=== PATIENT | female | born 1985 | race Caucasian/White ===

== ENCOUNTER 2018-09-15 12:46 | Emergency (ER) | payer BC, SELFPAY ==
[2018-09-15 12:47] VITALS: BP 120/76; PULSE 87; RESP 16; TEMP 36.9; O2SAT 96; BMI 30.7
--- NOTE | 2018-09-15 13:08 | CT_ITS ---
STUDY: CT ABDOMEN AND PELVIS WITHOUT CONTRAST REASON FOR EXAM: Female, 33 years old. Left flank pain. Nausea and vomiting. RADIATION DOSAGE (If Supplied By Facility): CTDIvol = ( 10.11 ) mGy, DLP = ( 459.86 ) mGycm TECHNIQUE: Transaxial images were obtained from the dome of the diaphragm to the symphysis pubis without oral contrast, and without intravenous contrast. Sagittal and coronal images were reconstructed. Individualized dose optimization techniques were used for this CT. COMPARISON: Comparison is made with prior study dated August 09, 2013. FINDINGS: The visualized lung bases are unremarkable. The visualized portions of the heart are within normal limits. Normal liver. Normal gallbladder and extrahepatic biliary system. Normal spleen. Normal pancreas. Normal bilateral adrenal glands. Normal right kidney. Normal left kidney. There is a small hiatal hernia. Normal small intestine. Normal colon. The appendix is visualized and appears normal. Normal abdominal aorta. Normal inferior vena cava. Normal retroperitoneum. Normal urinary bladder. Evidence of prior bilateral tubal ligation. Normal abdominal wall. Normal osseous structures. CT/Abdomen/Pelvis without Cont IMPRESSION: Normal unenhanced CT of the abdomen and pelvis. Electronically Signed: Negro Monaco, at 14:23 EDT , Service support ,
[2018-09-15 13:24] LABS: Mucous, Urine 0 SEEN /hpf (<or=2+)
[2018-09-15 13:26] LABS: White Blood Count 6.4 K/mm3 (4.4-11.0)
[2018-09-15 13:27] LABS: Absolute Lymphocyte Count 1.78 X10^3/ul (0.83-4.51); Absolute Neutrophil Count 4.1 X10^3/uL (2.0-7.7); Basophil% 0.3 % (0-1); Eosinophil# 0.03 X10^3/uL; Eosinophils% 0.5 % (0-5); Hemoglobin 13.4 g/dl (12.0-15.0); Lymphocyte # 1.78 X10^3/ul (4.0); Mean Corp Hgb Conc 32.7 g/gl (32-36); Mean Corpuscular Hgb 30.8 pg (27.0-32.0); Mean Corpuscular Volume 94.3 fL (81-99); Mean Platelet Vol. 9.5 fl (6.2-12.0); Monocyte# 0.44 X10^3/uL; Monocyte% 0.9 % (0-10); Neutrophil # 4.08 X10^3/uL (2.7-7.7); Neutrophil % 54.1 % (47-70); POSITIVE COUNT NO; POSITIVE DIFFERENTIAL NO; POSITIVE MORPHOLOGY NO; Platelet Count 337 K/mm3 (150-450); RBC Distribution Width CV 12.5 % (11.6-14.6); Red Blood Count 4.35 M/mm3 (4.2-5.4)
[2018-09-15 13:28] LABS: Basophil# 0.02 X10^3/uL
[2018-09-15 13:30] LABS: Color, Urine Yellow (Yellow); Glucose, Dipstick Normal (Normal); Ketone-Dipstick Negative (Negative); Leukocyte Esterase-Dipstick 25 /ul (Negative); Nitrite-Dipstick Negative (Negative); Occult Blood-Urine 10 /ul (Negative); Protein-Dipstick Negative (Negative); Specific Gravity, Urine 1.005 (1.002-1.030); Urine Bilirubin Dipstick Negative (Negative); Urine Clarity Clear (Clear); Urine Urobilinogen Normal (Normal); Urine pH 6.5 (5.0 - 8.0)
[2018-09-15 13:40] LABS: Bacteria RARE /hpf (None Seen); Red Blood Cells-Urine 0-5 SEEN /hpf (0-5); Squamous Epithelial Cells - UA 0-5 SEEN /hpf (5-10); White Blood Cells 0-5 SEEN /hpf (0-5)
[2018-09-15 13:46] LABS: Internal QC Validated? YES +Cl - CLEAR BKGD; Pregnancy, Serum, hCG Quali. NEGATIVE Negative
[2018-09-15 13:50] LABS: Anion Gap 8 (5-15); BUN 8 mg/dL (7-18); BUN/Creat Ratio 9.8 RATIO (10-20); Calcium,Total 8.6 mg/dL (8.5-10.1); Chloride 105 mmol/L (98-107); Creatinine, Serum 0.82 mg/dL (0.55-1.02); EST Glomerular Filtration Rate 85 mL/min (>60); Est Glom Filt Rate - Afr Amer 102 mL/min (>60); Estimated Creatinine Clearance 86.17 ml/min; Glucose 85 mg/dL (74-106); Potassium 3.6 mmol/L (3.5-5.1); Sodium Level 138 mmol/L (136-145)
--- NOTE | 2018-09-15 15:22 | ED.VISSUMM ---
- ER Visit Summary Date of Service: 09/15/18 Chief Complaint: [Abdominal pain as well as vomiting and diarrhea] History of Present Illness: The patient is a 33 F [the emergency department 5-day history of abdominal discomfort as well as vomiting and diarrhea. Patient states that she is been vomiting for the last 5 days however she only threw up once today. Patient had 2 watery stools today but is had been having copious watery stools. She denies any fever. She denies any sick contacts. She denies recent travel or antibiotic usage. Patient describes lower abdominal discomfort and discomfort into her back. Patient denies urinary symptoms. Patient states the discomfort is more in her left lower back and feels like cramping.] Physical Examination: [HEENT-PERRLA, EOMI. Cranial nerves II through XII grossly intact. TMs clear. Mucous membranes moist. No adenopathy. Cardiovascular-regular rate and rhythm without murmur or ectopy Lungs-clear to auscultation, chest wall stable without crepitus or subcu emphysema Abdomen-normoactive bowel sounds, soft. Patient has some mild diffuse tenderness over the lower abdomen. There is no rebound, rigidity, or perineal signs. Patient has some mild CVA tenderness on the left. Extremities-intact ?4, normal range of motion, normal pulses, atraumatic] Test Results: [CBC with differential was normal. Chemistries were normal. Urinalysis normal. hCG was negative. CT flank was normal.] Emergency Department Course and Treatment: [Patient was given normal saline. Patient was given Zofran 4 mg IV.] Treatment Plan: [Prescription for Zofran and Bentyl. Patient advised to follow-up with primary care physician 3 to 5 days.] Disposition: [Discharged home stable condition. Patient advised to return if worsening pain, fever, persistent vomiting, dehydration, or conditions worsen anyway.] Impression: [Viral gastroenteritis] This note was generated with [employer] dictation software. It may contain incorrect words, spelling, and punctuation that were not noted in review of the chart prior to signing ED Disposition - Plan for ED Patient: Referrals: Care Physician,No Primary [Primary Care Provider] -
--- NOTE | 2018-09-15 15:27 | ED.DCSUM_ITS ---
- ER Visit Summary Date of Service: 09/15/18 Chief Complaint: [Abdominal pain as well as vomiting and diarrhea] History of Present Illness: The patient is a 33 F [the emergency department 5- day history of abdominal discomfort as well as vomiting and diarrhea. Patient states that she is been vomiting for the last 5 days however she only threw up once today. Patient had 2 watery stools today but is had been having copious watery stools. She denies any fever. She denies any sick contacts. She denies recent travel or antibiotic usage. Patient describes lower abdominal discomfort and discomfort into her back. Patient denies urinary symptoms. Patient states the discomfort is more in her left lower back and feels like cramping.] Physical Examination: [HEENT-PERRLA, EOMI. Cranial nerves II through XII grossly intact. TMs clear. Mucous membranes moist. No adenopathy. Cardiovascular-regular rate and rhythm without murmur or ectopy Lungs-clear to auscultation, chest wall stable without crepitus or subcu emphysema Abdomen-normoactive bowel sounds, soft. Patient has some mild diffuse tenderness over the lower abdomen. There is no rebound, rigidity, or perineal signs. Patient has some mild CVA tenderness on the left. Extremities-intact ?4, normal range of motion, normal pulses, atraumatic] Test Results: [CBC with differential was normal. Chemistries were normal. Urinalysis normal. hCG was negative. CT flank was normal.] Emergency Department Course and Treatment: [Patient was given normal saline. Patient was given Zofran 4 mg IV.] Treatment Plan: [Prescription for Zofran and Bentyl. Patient advised to follow- up with primary care physician 3 to 5 days.] Disposition: [Discharged home stable condition. Patient advised to return if worsening pain, fever, persistent vomiting, dehydration, or conditions worsen anyway.] Impression: [Viral gastroenteritis] This note was generated with [employer] dictation software. It may contain incorrect words, spelling, and punctuation that were not noted in review of the chart prior to signing ED Disposition - Plan for ED Patient: Referrals: Care Physician,No Primary [Primary Care Provider] -
--- NOTE | 2018-09-15 15:27 | ED.DEP ---
ED Disposition - Plan for ED Patient: Instructions: ED Gastroenteritis Viral Prescriptions: Ondansetron [Zofran Odt] 4 mg PO Q8H PRN PRN #10 tab PRN Reason: Nausea Dicyclomine HCl [Bentyl] 20 mg PO TIDAC #20 cap Referrals: Care Physician,No Primary [Primary Care Provider] - Lynda Evangelista MD [STAFF PHYSICIAN] - 3-5 Days
== END 2018-09-15 15:46 | disposition home or self-care (01) ==
LOC: ED 13:34
PROVIDERS: Emergency Provider Emergency Medicine
DX: A08.4 Viral intestinal infection, unspecified (principal)
CPT/HCPCS: 74176; 80048; 81001; 84703; 85025; 99284

== ENCOUNTER 2023-12-12 10:47 | Emergency (ER) | payer OTHER, SELFPAY ==
[2023-12-12 10:48] VITALS: BP 106/82; PULSE 89; RESP 16; TEMP 36; O2SAT 100; BMI 23.4
--- NOTE | 2023-12-12 12:22 | CT_ITS ---
STUDY: CT BRAIN WITHOUT CONTRAST REASON FOR EXAM: Female, 38 years old. Trauma. Syncopal episode. RADIATION DOSAGE (If Supplied By Facility): CTDIvol = ( 47.06 ) mGy, DLP = ( 890.33 ) mGycm TECHNIQUE: Transaxial CT imaging of the brain was performed without administration of intravenous contrast material. Individualized dose optimization techniques were used for this CT. COMPARISON: No relevant priors. FINDINGS: Normal soft tissue structures. Normal calvarium. Normal size ventricles and extra-axial spaces for the patient''s age. Normal white matter tracts of the cerebral hemispheres. Normal basal ganglia and thalami. Normal brainstem. Normal cerebellum. There is no intracranial hemorrhage. There are no findings of an acute ischemic infarction. There is opacification of the left maxillary sinus and the left ethmoid sinus. Mucosal thickening of the left frontal sinus. CT/Brain/Head without Contrast IMPRESSION: Normal unenhanced CT scan of the brain. Opacification of the right maxillary sinus and left ethmoid sinus. Mucosal thickening of the left frontal sinus. Electronically Signed: Negro Monaco MD at 13:44 EDT ,
--- NOTE | 2023-12-12 12:23 | EKG12_ITS ---
Test Reason : SYNCOPE Blood Pressure : / mmHG Vent. Rate : 066 BPM Atrial Rate : 066 BPM P-R Int : 142 ms QRS Dur : 078 ms QT Int : 412 ms P-R-T Axes : 071 036 045 degrees QTc Int : 431 ms Normal sinus rhythm with sinus arrhythmia Normal ECG Confirmed by Chris Boone ([id number]), mapping editor LUCAS STEPHENSON ([id number]) on 12/14/2023 8:17:28 AM Referred By: Confirmed By:Chris Boone
--- NOTE | 2023-12-12 12:24 | EX.ED.DYSGE1 ---
HPI History of Present Illness Chief Complaint: Dizziness Informant: patient and spouse/S.O. Narrative Narrative: 38-year-old female presenting to the emergency room chief complaint of syncope. Patient states that on Tuesday evening she went to the bathroom to urinate. She states the next thing she remembers she was awake on the ground with blood on her. states he came into the room and that she was pale. She does not remember any prodrome prior to the event. She has not had syncope before. She has had episodes where she has been at rest and her iWatch has alerted her to a heart rate of 170. Patient states that she exercises frequently and is not uncommon to get her heart rate up that high. Patient denies any known medical problems. She takes a probiotic daily. No other herbs or [id number] medications. She states she has otherwise been very healthy. She notes laceration to the right eyebrow and bruising below each eye. She states she had a bloody nose. She has had persistent headache in the front and the back of the right side of her head. She states she has felt generally weak and nauseated without vomiting since the incident. PFSH PFSH Medical History no medical history Home Medications ?Medication ?Instructions ?Recorded ?Last Taken ?Type ondansetron 4 mg disintegrating 4 mg PO Q8H PRN PRN Nausea #10 tabs 09/15/18 Unknown Rx tablet Allergy/AdvReac Type Severity Reaction Status Date / Time No Known Allergies Allergy Verified 12/12/23 10:48 Surgical History (Updated 12/12/23 @ 12:[address] Jorge Luis Lopez DO) History of bilateral tubal ligation Surgical History no surgical history Social History Smoking Status: Current every day smoker tobacco type: cigarettes and e-cigarettes ROS ROS ED ROS Narrative Generalized fatigue Constitutional Constitutional ED: Denies chills, fever(s) or weight loss Eyes Eyes: Denies change in vision or diplopia ENT ENT ED: Reports other Details: Periorbital bruising right eyebrow laceration ; Denies ear pain, rhinorrhea or sore throat Cardiovascular Cardiovascular: Reports racing heartbeat and other Details: Syncope ; Denies chest pain, orthopnea or palpitations Respiratory/Chest Respiratory/Chest: Denies cough, dyspnea or orthopnea Gastrointestinal Gastrointestinal: Denies abdominal pain, diarrhea, nausea or vomiting Genitourinary Genitourinary ED: Denies dysuria, hematuria or urinary frequency Musculoskeletal Musculoskeletal: Reports neck pain; Denies arthralgias or myalgias Integumentary Denies abscess or rash Neurologic Neurologic: Reports headache(s) and other Details: Patient reports tingling in the right toes right fingers this morning ; Denies weakness Psychiatric Psychiatric: Reports anxiety; Denies depression, suicidal ideation or suicidal thoughts Endocrine Endocrinology: Denies polydipsia, polyphagia or polyuria Allergic/Immunologic Allergic/Immunologic ED: Denies mouth swelling, tongue swelling or urticaria EXAM Physical Exam Const Vital Signs: 12/12/23 10:48 12/12/23 12:52 12/12/23 14:15 Temperature 96.8 F L Temperature Source Temporal Pulse Rate 89 61 58 L Respiratory Rate 16 18 16 Blood Pressure 106/82 H 113/66 111/70 Blood Pressure Mean 90 81 83 Pulse Ox 100 97 100 Oxygen Delivery Method Room Air Room Air Room Air 12/12/23 15:14 Temperature 98.7 F Temperature Source Pulse Rate 76 Respiratory Rate 18 Blood Pressure 101/67 Blood Pressure Mean 78 Pulse Ox 98 Oxygen Delivery Method Positive well nourished and well developed General Appearance ED: well developed HEENT Reports normocephalic and moist mucous membranes HEENT Narrative: Tenderness to palpation right periorbital region. There is bilateral inferior periorbital bruising. There is a healing 3 cm laceration in the right eyebrow. It is not gaping. trauma and tenderness Eyes PERRL and EOMs intact bilaterally Neck no lymphadenopathy, supple and no JVD Resp normal respiratory effort and clear to auscultation bilaterally Cardio regular rate, regular rhythm and no murmurs GI normal to inspection, nondistended, normoactive bowel sounds and non-tender Palpation: soft Back/Spine no CVA tenderness and normal ROM Extremity normal to inspection General Extremety ED: Negative for edema General Extremity: Negative for edema Neuro oriented x3 and CN's II-XII intact bilaterally Neuro Narrative: GCS 15 Sensorium / Orientation: alert Sensory Exam: No sensory level loss detected Motor Exam: strength 5/5 throughout Psych mental status grossly normal Mood & Affect: Negative for depressed or tearful Skin no rashes or lesions noted and no wounds MDM MDM MDM Narrative Medical decision making narrative: Differential diagnosis includes cardiogenic syncope vasovagal syncope electrolyte abnormalities pulmonary embolism aortic dissection acute coronary syndrome anemia. EKG is sinus rhythm nonischemic. Troponin is normal. BMP normal. Hemoglobin 13.5 D-dimer slightly elevated 0.58. CTA of the chest demonstrates no aortic dissection or pulmonary embolism. CT the brain demonstrates no intracranial hemorrhage. There is some evidence of sinusitis which the patient states is chronic. She has remained in a sinus rhythm. We talked about cardiac dysrhythmias. I think that this is still high likelihood and would request that she follow-up either with primary care or with cardiology. I think some of her symptoms could be related to a concussion. I will have her rest return if worsening or concerns History & Record Review Discussion w/independent historian: Patient and Family Lab Data Attestation: I reviewed the patient's lab results. Labs: Laboratory Results - last 24 hr 12/12/23 12:37 WBC 4.9 RBC 4.52 Hgb 13.5 Hct 40.6 MCV 89.8 MCH 29.9 MCHC 33.3 RDW Std Deviation 41.8 RDW Coeff of Avila 12.6 Plt Count 265 MPV 9.8 Immature Gran % (Auto) 0.200 Neut % (Auto) 60.1 Lymph % (Auto) 31.3 Chambers % (Auto) 7.6 Eos % (Auto) 0.2 Baso % (Auto) 0.6 Absolute Neuts (auto) 2.9 Absolute Lymphs (auto) 1.52 Nucleated RBC % 0 D-Dimer Quant (PE/DVT) 0.58 H* Sodium 137 Potassium 3.7 Chloride 105 Carbon Dioxide 24.0 Anion Gap 8 BUN 8 Creatinine 0.71 Estim Creat Clear Calc 94.78 Est GFR (MDRD) Af Amer 117 Est GFR (MDRD) Non-Af 96 BUN/Creatinine Ratio 11.2 Glucose 93 Calcium 9.3 Troponin I High Sens 4 Radiography Diagnostic Testing: Clinical Impression(s) from Imaging Studies Brain CT 12/12/23 12:22 IMPRESSION: Normal unenhanced CT scan of the brain. Opacification of the right maxillary sinus and left ethmoid sinus. Mucosal thickening of the left frontal sinus. Electronically Signed: Negro Monaco MD at 13:44 EDT , Chest X-Ray 12/12/23 13:00 IMPRESSION: Normal x-ray examination of the chest. Electronically Signed: Negro Monaco MD at 13:13 EDT , Chest CTA 12/12/23 13:50 IMPRESSION: Normal CTA chest examination, without a demonstrated pulmonary embolism or arterial dissection. Electronically Signed: Negro Monaco MD at 14:31 EDT , EKG Initial EKG: Attestation: I personally reviewed and interpreted this EKG as follows: Comments: Normal sinus rhythm ventricular rate of 66 bpm Discharge Plan Triage Chief Complaint: Dizziness ED Provider: Jorge Luis Lopez Dx/Rx/DC Orders Clinical Impression: Syncope, Concussion, Contusion of face, Forehead laceration Instructions: Diagnosing Syncope, Concussion Dc Prescriptions: No Action ondansetron 4 MG tablet 4 mg PO Q8H PRN PRN (Reason: Nausea) Qty: 10 0RF Primary Care Provider: Luz Anand NP Referrals: Chris Boone MD [Med Staff - Active Staff] - As soon as possible (if you wish to follow up with a consultant in ergonomics and safety for the passing out (syncope)) Care Physician,Sissy Primary [Non-Staff] - Luz Anand NP, OLVIN-C [Primary Care Provider] - As soon as possible Print Language: Turkish Disposition Disposition: Home, Self Care Discharge Date/Time: 12/12/23 15:15
[2023-12-12 12:43] LABS: Absolute Lymphocyte Count 1.52 X10^3/uL (0.83-4.51); Absolute Neutrophil Count 2.9 X10^3/uL (2.0-7.7); Basophil# 0.03 X10^3/uL; Basophil% 0.6 % (0-1); Eosinophil# 0.01 X10^3/uL; Eosinophils% 0.2 % (0-5); Hematocrit 40.6 % (37-47); Hemoglobin 13.5 g/dL (12.0-15.0); Lymphocyte # 1.52 X10^3/ul (0.83-4.51); Lymphocyte % 31.3 % (19-41); Mean Corp Hgb Conc 33.3 g/dL (32-36); Mean Corpuscular Hgb 29.9 pg (27.0-32.0); Mean Corpuscular Volume 89.8 fL (81-99); Mean Platelet Vol. 9.8 fl (6.2-12.0); Monocyte# 0.37 X10^3/uL; Monocyte% 7.6 % (0-10); NRBC Flagged by Analyzer 0 % (0-5); Neutrophil # 2.92 X10^3/uL (2.7-7.7); Neutrophil % 60.1 % (47-70); Platelet Count 265 K/mm3 (150-450); RBC Distribution Width CV 12.6 % (11.6-14.6); RBC Distribution Width SD 41.8 fl (35.1-43.9); Red Blood Count 4.52 M/mm3 (4.2-5.4); White Blood Count 4.9 K/mm3 (4.4-11.0)
[2023-12-12 12:52] VITALS: BP 113/66; PULSE 61; RESP 18; O2SAT 97
--- NOTE | 2023-12-12 13:00 | RAD_ITS ---
STUDY: X-RAY CHEST REASON FOR EXAM: Female, 38 years old. Syncope TECHNIQUE: Single AP portable view of the chest. COMPARISON: Comparison is made with prior examination of March 24, 2009. FINDINGS: EKG electrodes are seen. The lungs are clear and expanded. There is no demonstrated pleural abnormality. Normal size heart. Normal mediastinum and isai. Normal visualized pulmonary arteries. Normal visualized aortic arch and descending thoracic aorta. Normal visualized thoracic spine. Normal visualized ribs, clavicles, and shoulders. There is no demonstrated abnormality of the visualized soft tissue structures of the upper abdomen. RAD/Chest 1 View (Portable) IMPRESSION: Normal x-ray examination of the chest. Electronically Signed: Negro Monaco MD at 13:13 EDT ,
[2023-12-12 13:03] LABS: Anion Gap 8 (5-15); BUN 8 mg/dL (7-18); BUN/Creat Ratio 11.2 RATIO (10-20); Calcium,Total 9.3 mg/dL (8.5-10.1); Chloride 105 mmol/L (98-107); Creatinine, Serum 0.71 mg/dL (0.55-1.02); EST Glomerular Filtration Rate 96 mL/min (>60); Est Glom Filt Rate - Afr Amer 117 mL/min (>60); Estimated Creatinine Clearance 94.78 ml/min; Glucose 93 mg/dL (74-106); Potassium 3.7 mmol/L (3.5-5.1); Sodium Level 137 mmol/L (136-145); Troponin-I HS 4 pg/mL (3.0-54.0)
[2023-12-12 13:37] LABS: D-Dimer Quantitative (DVT/PE) 0.58 FEU/ug/m (0.27-0.49)
--- NOTE | 2023-12-12 13:38 | ED.RN ---
ddimer 0.58 Dr johnson notified
--- NOTE | 2023-12-12 13:50 | CT_ITS ---
STUDY: CTA CHEST REASON FOR EXAM: Female, 38 years old. Pulmonary embolism, syncope RADIATION DOSAGE (If Supplied By Facility): CTDIvol = ( 4.18 ) mGy, DLP = ( 192.80 ) mGycm TECHNIQUE: The examination was performed with the intravenous administration of IV 100mL [id number]-[id number]. Post-processing of the angiographic images was performed, with multiplanar reformation and 3D reconstruction. Individualized dose optimization techniques were used for this CT. COMPARISON: Comparison is made with prior chest radiograph done earlier today. FINDINGS: Normal enhancement of the main pulmonary artery and right and left pulmonary arteries. Normal enhancement of the bilateral peripheral pulmonary arteries. There is no demonstrated pulmonary embolism. Normal thoracic aorta and visualized great vessels. There is no demonstrated aortic dissection. Normal heart and pericardium. Normal mediastinum. Normal hilar regions. Normal visualized trachea and bronchi. The lungs are well expanded. Normal pulmonary parenchyma. Normal pleura. Normal chest wall structures. Normal osseous structures. Normal visualized upper abdomen. CT/CTA Chest W/WO Contrast IMPRESSION: Normal CTA chest examination, without a demonstrated pulmonary embolism or arterial dissection. Electronically Signed: Negro Monaco MD at 14:31 EDT ,
[2023-12-12 14:15] VITALS: BP 111/70; PULSE 58; RESP 16; O2SAT 100
[2023-12-12 15:14] VITALS: BP 101/67; PULSE 76; RESP 18; TEMP 37.1; O2SAT 98
== END 2023-12-12 15:15 | disposition home or self-care (01) ==
PROVIDERS: Emergency Provider Emergency Medicine; PCP Nurse Practitioner Primary Care; Visit Provider Emergency Medicine
DX: R55 Syncope and collapse (principal); S06.0X0A Concussion without loss of consciousness, initial encounter; S01.81XA Laceration without foreign body of other part of head, initial encounter; F17.210 Nicotine dependence, cigarettes, uncomplicated; F17.290 Nicotine dependence, other tobacco product, uncomplicated; X58.XXXA Exposure to other specified factors, initial encounter
CPT/HCPCS: 70450; 71045; 71275; 80048; 84484; 85025; 85379; 93005; 99284; Q9967; A4216